=== PATIENT | male | born 1975 | race Caucasian/White ===

== ENCOUNTER 2016-12-09 21:24 | Emergency (ER) | payer SELFPAY ==
[~2016-12-09] VITALS: Ht 170.2 cm; Wt 96.5 kg
[2016-12-09 21:32] VITALS: Ht 170.2 cm; Wt 96.5 kg
--- NOTE | 2016-12-09 22:46 | ERD ---
ER Documentation Chief Complaint Date/Time DATE: 12/09/16 TIME: 22:44 Chief Complaint left foot pain, hit foot against metal around 0900 today HPI This a 41-year-old male who presents the emergency department today complaining of left foot pain after hitting his foot on metal earlier this morning. States his pain started after that. States he has pain with walking. States he is not taking any medication for the pain. Denies any fevers or chills or previous trauma. ROS All systems reviewed and are negative except as per history of present illness. Medications Home Meds Active Scripts Naproxen* (Naprosyn*) 500 Mg Tablet, 500 MG PO BID Y for PAIN AND/OR INFLAMMATION, #30 TAB Prov:RANDI CELAYA PA-C 12/09/16 Hydrocodone/Acetaminophen ([place] 5-325 Tablet) 1 Each Tablet, 1 TAB PO Q6H Y for PAIN, #10 TAB Prov:RANDI CELAYA PA-C 12/09/16 Allergies Allergies: Coded Allergies: No Known Drug Allergies (Verified Allergy, Unknown, 12/09/16) PMhx/Soc Medical and Surgical Hx: pt denies Medical Hx, pt denies Surgical Hx Hx Alcohol Use: No Hx Substance Use: No Hx Tobacco Use: No Physical Exam Vitals Vital Signs Date Time Temp Pulse Resp B/P Pulse Ox O2 Delivery O2 Flow Rate FiO2 12/09/16 21:32 99.0 84 20 170/94 99 Physical Exam Const: No acute distress Head: Atraumatic Eyes: Normal Conjunctiva ENT: Normal External Ears, Nose and Mouth. Neck: Full range of motion..~ No meningismus. Resp: Clear to auscultation bilaterally Cardio: Regular rate and rhythm, no murmurs Skin: No petechiae or rashes Back: No midline or flank tenderness MSk: Left foot with no obvious deformity. Mild effusion over first MTP joint. Tenderness to palpation first ray and first MTP joint. Full active range motion elbow. Pulses 2+. Distal neurovascularly intact. Neur: Awake and alert Psych: Normal Mood and Affect Results 24 hrs Current Medications Medications (Trade) Dose Ordered Sig/Steffi Route PRN Reason Start Time Stop Time Status Last Admin Dose Admin Acetaminophen/ Hydrocodone Bitart ([place] (5/325)) 1 tab ONCE ONCE PO 12/09/16 23:00 12/09/16 23:01 DC 12/09/16 23:12 DIAGNOSTIC IMAGING REPORT Patient: CHANCE HERNANDES : 1975 Age: 41 Sex: M MR #: [id number] DOS: 12/09/16 0000 Ordering MD: RANDI CELAYA PA-C Location: E Room/Bed: PROCEDURE: X-ray left foot CLINICAL INDICATION: Trauma to the left foot, with reference marker at the medial aspect of the base of the first proximal phalanx. TECHNIQUE: 3 views left foot COMPARISON: None. FINDINGS: No acute fracture or dislocation. Soft tissues unremarkable. IMPRESSION: No acute fracture. RPTAT: [facility] Physician Gino Date Time Electronically viewed and signed by Physician Gino on 12/09/2016 23:34 RS/ CC: RANDI CELAYA PA-C Procedures/MDM This a 41-year-old male presents to the emergency department today complaining of left foot pain after hitting his foot on metal earlier today. Patient had some swelling and tenderness his first ray and first MTP joint therefore did obtain images. Per the radiology report images of the left foot show no acute fracture dislocation. Soft tissues are unremarkable. Vision symptoms at this time is consistent with sprain versus strain versus contusion. Patient was given [place] here in the emergency department. Patient was given a prescription for short course of [place] and Naprosyn. He was given crutches to help ambulate. At this time the patient is stable for discharge and outpatient management. Patient should follow up with their PCP in the next 1-2 days. They may return to the emergency department sooner for any persistent or worsening of symptoms. Patient understood and agreed with the plan. Departure Diagnosis: Primary Impression: Injury of foot Encounter type: initial encounter Laterality: left Qualified Code: S99.922A - Injury of foot, left, initial encounter Condition: Fair RANDI CELAYA PA-C Dec 09, 2016 22:46
[2016-12-09] MEDS ORDERED: HYDROCODONE/APAP (5/325) TAB PO ONE (23:00)
--- NOTE | 2016-12-09 23:34 | RADRPT ---
PROCEDURE: X-ray left foot CLINICAL INDICATION: Trauma to the left foot, with reference marker at the medial aspect of the ba se of the first proximal phalanx. TECHNIQUE: 3 views left foot COMPARISON: None. FINDINGS: No acute fracture or dislocation. Soft tissues unremarkable. IMPRESSION: No acute fracture. RPTAT: [facility] Physician Gino Date Time Electronically viewed and signed by Jeffrey Finn Physician on 12/09/2016 23:34 RS/
[2016-12-09] MEDS ORDERED: HYDR-906 PO (23:40)
[2016-12-09] MEDS ORDERED: NAPR-260 PO (23:40)
[2016-12-09 23:51] VITALS: BP 170/94; PULSE 87; RESP 20; TEMP 99
== END 2016-12-09 23:51 | disposition home or self-care (01) ==
LOC: FTE 21:24
DX: S99.922A Unspecified injury of left foot, initial encounter (principal); W22.8XXA Striking against or struck by other objects, initial encounter; Y92.9 Unspecified place or not applicable

== ENCOUNTER 2017-01-03 13:10 | Emergency (ER) | payer SELFPAY ==
[~2017-01-03] VITALS: Ht 172.7 cm; Wt 99.0 kg
[~2017-01-03 13:10] MED LIST: HYDR-906 PO; NAPR-260 PO
[2017-01-03 13:17] VITALS: Ht 172.7 cm; Wt 99.0 kg
--- NOTE | 2017-01-03 13:55 | ERD ---
ER Documentation Chief Complaint Date/Time DATE: 01/03/17 TIME: 13:50 Chief Complaint left leg pain x 1 month HPI This is a 41-year-old male presenting to emergency department for left foot pain 1 month. Patient was seen here 1 month ago after hitting his foot on a metal beam. Patient states since then he has had pain however it has been tolerable. Patient states in the past 2 days he has had worsening pain and difficulty ambulating. Patient states most of his pain is in the distal plantar region of his left foot. No numbness or tingling. No loss of sensation. No new injury. Patient did not take any medications today. ROS All systems reviewed and are negative except as per history of present illness. Medications Home Meds Active Scripts Hydrocodone/Acetaminophen ([place] 5-325 Tablet) 1 Each Tablet, 1 TAB PO Q6H Y for PAIN, #7 TAB Prov:ALHAJI DESAI NP 01/03/17 Ibuprofen* (Motrin*) 600 Mg Tab, 600 MG PO Q6, #15 TAB Prov:ALHAJI DESAI NP 01/03/17 Naproxen* (Naprosyn*) 500 Mg Tablet, 500 MG PO BID Y for PAIN AND/OR INFLAMMATION, #30 TAB Prov:RANDI CELAYA PA-C 12/09/16 Hydrocodone/Acetaminophen ([place] 5-325 Tablet) 1 Each Tablet, 1 TAB PO Q6H Y for PAIN, #10 TAB Prov:RANDI CELAYA-C 12/09/16 Allergies Allergies: Coded Allergies: No Known Drug Allergies (Verified Allergy, Unknown, 12/09/16) PMhx/Soc Medical and Surgical Hx: pt denies Medical Hx, pt denies Surgical Hx Hx Alcohol Use: No Hx Substance Use: No Hx Tobacco Use: No Physical Exam Vitals Vital Signs Date Time Temp Pulse Resp B/P Pulse Ox O2 Delivery O2 Flow Rate FiO2 01/03/17 13:17 98.6 94 18 148/101 100 Physical Exam Const: No acute distress, alert Head: Atraumatic Eyes: Normal Conjunctiva ENT: Normal External Ears, Nose and Mouth. Neck: Full range of motion..~ No meningismus. Resp: Clear to auscultation bilaterally Cardio: Regular rate and rhythm, no murmurs Abd: Soft, non tender, non distended. Normal bowel sounds Skin: No petechiae or rashes Back: No midline or flank tenderness Ext: Full mobility to left foot and ankle. Full extension and flexion of left foot. Sensation fully intact. Pedal pulses palpable 2+. No laceration or bruising. Capillary refill is less than 3 seconds Neur: Awake and alert Psych: Normal Mood and Affect Results 24 hrs Current Medications Medications (Trade) Dose Ordered Sig/Steffi Route PRN Reason Start Time Stop Time Status Last Admin Dose Admin Ibuprofen (Motrin) 600 mg ONCE ONCE PO 01/03/17 14:00 01/03/17 14:01 DC 01/03/17 14:03 Procedures/MDM [place] [id number] [facility] Main Line: [phone] DIAGNOSTIC IMAGING REPORT Patient: CHANCE HERNANDES : 1975 Age: 41 Sex: M MR #: [id number] DOS: 01/03/17 1339 Ordering MD: ALHAJI DESAI NP Location: [facility] Room/Bed: PROCEDURE: XR Foot. CLINICAL INDICATION: Left foot pain TECHNIQUE: Three views of the left foot are available for review. COMPARISON: 12/09/2016 FINDINGS: There is no acute osseous or articular abnormality. No evidence for fracture. Bone mineral density is preserved. The articular surfaces are smooth without evidence of marginal erosions. The soft tissues are intact without evidence of calcifications. IMPRESSION: 1. No acute osseous abnormality or interval change. MDM: This is a 41-year-old male presenting to emergency department for left foot pain 1 month. Patient sustained an injury 1 month ago and was seen here in the ED. At that time an x-ray left foot was done that showed no acute fracture. Patient states pain has been tolerable over the last month however the last 2 days he has had increased pain and difficulty ambulating. Patient given ibuprofen p.o. while in the ED. Vital signs are stable. Physical exam is unremarkable. Patient has full mobility. Sensation fully intact. Pedal pulses palpable 2+. X-ray left foot reviewed by radiologist as no acute osseous abnormality or interval change. Discussed case with Dr. Gaona and agrees patient is appropriate for outpatient management with referral to orthopedic physician. Patient is appropriate for outpatient management and will be given prescription for ibuprofen and [place] 5 mg 325 mg #7 instructed patient to follow-up with primary care provider or orthopedic physician in the next 2-3 days for reassessment. Resources provided in discharge paperwork. Return to ED for any high fever, chest pain, difficulty breathing, shortness breath, wheezing, vomiting, diarrhea, abdominal pain or any new or worsening symptoms. Patient verbalizes understanding. All questions answered at discharge. Departure Diagnosis: Primary Impression: Injury of foot Encounter type: subsequent encounter Laterality: left Qualified Code: S99.922D - Injury of foot, left, subsequent encounter Condition: Stable ALHAJI DESAI NP Jan 03, 2017 13:55
[2017-01-03] MEDS ORDERED: IBUPROFEN 600 MG TAB PO ONE (14:00)
--- NOTE | 2017-01-03 14:11 | RADRPT ---
PROCEDURE: XR Foot. CLINICAL INDICATION: Left foot pain TECHNIQUE: Three views of the left foot are available for review. COMPARISON: 12/09/2016 FINDINGS: There is no acute osseous or articular abnormality. No evidence for fracture. Bone mineral density is preserved. The articular surfaces are smooth without evidence of marginal erosions. The soft tis sues are intact without evidence of calcifications. IMPRESSION: 1. No acute osseous abnormality or interval change. RPTAT: AA .Darrell Jameson MD, Date Time Electronically viewed and signed by .Darrell Jameson MD, on 01/03/2017 14:11 .d/
[2017-01-03] MEDS ORDERED: HYDR-906 PO (14:30)
[2017-01-03] MEDS ORDERED: IBUP-1542 PO (14:30)
== END 2017-01-03 14:36 | disposition home or self-care (01) ==
LOC: FTE 13:10
DX: S99.922D Unspecified injury of left foot, subsequent encounter (principal); W22.8XXD Striking against or struck by other objects, subsequent encounter

== ENCOUNTER 2018-09-11 21:47 | Emergency (ER) | payer SELFPAY ==
[~2018-09-11] VITALS: Ht 170.2 cm; Wt 103.2 kg
[~2018-09-11 21:47] MED LIST changes: +HYDR-4011 PO; -HYDR-906 PO; +IBUP-1542 PO; -NAPR-260 PO; +NAPR-985 PO
[2018-09-11 21:49] VITALS: BP 172/97; PULSE 105; RESP 22; Ht 170.2 cm; Wt 103.2 kg
== END 2018-09-11 22:26 | disposition left against medical advice (07) ==
LOC: FTE 21:47
DX: Z53.21 Procedure and treatment not carried out due to patient leaving prior to being seen by health care provider (principal)